=== PATIENT | male | born 1960 | race Caucasian/White ===

== ENCOUNTER → 2017-03-06 | Outpatient (CLI) | payer BC | LOC: COL.RAD 10:31 | DX: Z01.89 Encounter for other specified special examinations (principal) ==

== ENCOUNTER 2017-06-11 12:02 | Observation (INO) | payer BC ==
[~2017-06-11] VITALS: Ht 172.7 cm; Wt 68.6 kg
[2017-06-11] VITALS (10 sets, daily range): BP systolic 110–148; BP diastolic 51–77; PULSE 46–61; TEMP 97.6–98.7
[2017-06-11] MEDS ORDERED: DIFLUCAN 100MG100 MG PO (12:28)
[2017-06-11] MEDS ORDERED: ZOFRAN ODT8 MG PO (12:29)
[2017-06-11] MEDS ORDERED: NORCO 325 MG-51 TAB PO (12:30)
[2017-06-11] MEDS ORDERED: CENTRUM SILVER CHEW PO (12:31)
[2017-06-11] MEDS ORDERED: MAGIC MOUTH PO (12:32)
[2017-06-11 13:06] LABS: HEMATOCRIT 38.5 % (42.0-52.0); HEMOGLOBIN 13.1 g/dl (13.5-18.0); MEAN CELL VOLUME 86 fl (80.0-100.0); MEAN CORPUSCULAR HEMOGLOBIN 29 pg (27.0-31.0); MEAN CORPUSCULAR HGB CONC 34 g/dl (33.0-37.0); MEAN PLATELET VOLUME 9.5 fl (7.4-10.4); PLATELET COUNT 150 K/mm3 (130-400); RED BLOOD COUNT 4.49 M/mm3 (4.20-5.60); REDCELL DISTRIBUTION WIDTH-CV 13.6 % (11.5-14.5)
[2017-06-11 13:19] LABS: ALBUMIN 3.9 gm/dL (3.5-5.0); BILIRUBIN,TOTAL 0.4 mg/dL (0.0-1.0); CALCIUM 8.7 mg/dL (8.4-10.2); CREATININE, serum 0.94 mg/dL (0.66-1.25); POTASSIUM 3.9 mmol/L (3.4-5.0)
[2017-06-12] VITALS (7 sets, daily range): BP systolic 95–115; BP diastolic 52–64; PULSE 57–69; TEMP 97.5–100.1
[2017-06-12 14:33] LABS: ALBUMIN 3.2 gm/dL (3.5-5.0); BILIRUBIN,TOTAL 0.3 mg/dL (0.0-1.0); CALCIUM 8.1 mg/dL (8.4-10.2); CREATININE, serum 0.8 mg/dL (0.66-1.25); PHOSPHOROUS 2.9 mg/dL (2.5-4.5); POTASSIUM 3.9 mmol/L (3.4-5.0); TOTAL PROTEIN 6.1 gm/dL (6.4-8.2)
[2017-06-12 14:40] LABS: PRE ALBUMIN 11.9 mg/dL (17.6-36.0)
[2017-06-13 06:10] VITALS: BP 121/67; PULSE 57; TEMP 98.3
[2017-06-13 09:03] VITALS: BP 109/63; PULSE 58; TEMP 98.1
== END 2017-06-13 11:20 | disposition home or self-care (01) ==
LOC: SDCO 12:02 → SURG 14:46 → SDCO 18:00 → SURG 18:01
PROVIDERS: Surgery
DX: R13.10 Dysphagia, unspecified (principal); C09.9 Malignant neoplasm of tonsil, unspecified; Z80.9 Family history of malignant neoplasm, unspecified; Z87.891 Personal history of nicotine dependence
CPT/HCPCS: OP; A9284; J1170; J2405; J2704; J3010; J7042; J7120

== ENCOUNTER 2017-06-17 21:08 | Observation (INO) | payer BC ==
[~2017-06-17] VITALS: Ht 172.7 cm; Wt 72.2 kg
[~2017-06-17 21:08] MED LIST: CENTRUM SILVER CHEW PO; DIFLUCAN 100MG100 MG PO; MAGIC MOUTH PO; NORCO 325 MG-51 TAB PO; ZOFRAN ODT8 MG PO
[2017-06-17 21:49] LABS: BASO % 0.6 % (0.0-2.0); EOS % 0.2 % (0-4.0); GRAN # 3.9 (1.4-6.5); GRAN % 80.3 % (42.2-75.2); HEMOGLOBIN 12.1 g/dl (13.5-18.0); LYMPH # 0.3 (1.2-3.4); LYMPH % 6.5 % (20.0-51.0); MEAN CELL VOLUME 85 fl (80.0-100.0); MEAN CORPUSCULAR HEMOGLOBIN 29 pg (27.0-31.0); MEAN CORPUSCULAR HGB CONC 34 g/dl (33.0-37.0); MEAN PLATELET VOLUME 9.6 fl (7.4-10.4); MONO # 0.6 (0.1-0.6); PLATELET COUNT 148 K/mm3 (130-400); RED BLOOD COUNT 4.21 M/mm3 (4.20-5.60); REDCELL DISTRIBUTION WIDTH-CV 14.3 % (11.5-14.5)
[2017-06-17 22:01] LABS: ALBUMIN 3.6 gm/dL (3.5-5.0); BILIRUBIN,TOTAL 0.6 mg/dL (0.0-1.0); CALCIUM 8.6 mg/dL (8.4-10.2); CREATININE, serum 0.86 mg/dL (0.66-1.25); POTASSIUM 3.6 mmol/L (3.4-5.0); TOTAL PROTEIN 7.3 gm/dL (6.4-8.2)
[2017-06-17 22:05] LABS: HEMATOCRIT 35.6 % (42.0-52.0)
[2017-06-17 22:11] LABS: C-REACTIVE PROTEIN 17.4 mg/dL (0.0-0.9)
[2017-06-17 22:49] LABS: COLLECTION METHOD CLEAN CATCH
[2017-06-17 22:57] LABS: MUCOUS Present /lpf; PH 6 (5-8); SQUAMOUS EPITHELIAL 0-2 /hpf; URINE APPEARANCE Clear; URINE BACTERIA None Seen /hpf; URINE BILIRUBIN Negative (NEGATIVE); URINE BLOOD 1+ (NEGATIVE); URINE COLOR Yellow; URINE GLUCOSE Negative (NEGATIVE); URINE KETONE Negative (NEGATIVE); URINE LEUKOCYTE ESTERASE Negative (NEGATIVE); URINE NITRATE Negative (NEGATIVE); URINE PROTEIN(semi-quant) Negative (NEGATIVE); URINE UROBILINOGEN Negative (NEGATIVE)
[2017-06-18 00:41] VITALS: BP 124/64; PULSE 61; TEMP 98.1
[2017-06-18 06:12] VITALS: BP 118/65; PULSE 61; TEMP 100
[2017-06-18 09:24] VITALS: BP 119/65; PULSE 56; TEMP 97.5
[2017-06-18 14:00] VITALS: BP 122/68; PULSE 54; TEMP 98.1
== END 2017-06-18 20:00 | disposition home or self-care (01) ==
LOC: COL.ER 21:08 → SURG 23:38
PROVIDERS: Emergency Medicine
DX: R10.9 Unspecified abdominal pain (principal); E43 Unspecified severe protein-calorie malnutrition; Z93.1 Gastrostomy status; Z85.818 Personal history of malignant neoplasm of other sites of lip, oral cavity, and pharynx
CPT/HCPCS: G0378; J0696; J1170; J2405; J7030; Q9967

== ENCOUNTER 2018-03-30 04:57 | Emergency (ER) | payer BC ==
[~2018-03-30] VITALS: Ht 172.7 cm; Wt 68.2 kg
[2018-03-30 05:01] VITALS: TEMP 97.6
[2018-03-30] MEDS ORDERED: ALEVE 220MG220 MG PO (05:04)
[2018-03-30 05:38] LABS: BASO # 0.1 (0.0-0.2); BASO % 0.8 % (0.0-2.0); EOS # 0.3 (0.0-0.7); GRAN # 5.9 (1.4-6.5); GRAN % 71.5 % (42.2-75.2); HEMOGLOBIN 11.7 g/dl (13.5-18.0); LYMPH # 1.1 (1.2-3.4); LYMPH % 13.4 % (20.0-51.0); MEAN CELL VOLUME 88 fl (80.0-100.0); MEAN CORPUSCULAR HEMOGLOBIN 30 pg (27.0-31.0); MEAN CORPUSCULAR HGB CONC 34 g/dl (33.0-37.0); MEAN PLATELET VOLUME 8.5 fl (7.4-10.4); MONO # 0.8 (0.1-0.6); MONO % 10.2 % (1.7-9.3); PLATELET COUNT 322 K/mm3 (130-400); RED BLOOD COUNT 3.94 M/mm3 (4.20-5.60); REDCELL DISTRIBUTION WIDTH-CV 12.7 % (11.5-14.5)
[2018-03-30 05:39] LABS: HEMATOCRIT 34.7 % (42.0-52.0)
[2018-03-30 05:50] LABS: ALBUMIN 3.7 gm/dL (3.5-5.0); BILIRUBIN,TOTAL 0.2 mg/dL (0.0-1.0); CALCIUM 8.6 mg/dL (8.4-10.2); CREATININE, serum 0.87 mg/dL (0.66-1.25); POTASSIUM 3.9 mmol/L (3.4-5.0); TOTAL PROTEIN 6.8 gm/dL (6.4-8.2)
[2018-03-30 07:12] LABS: COLLECTION METHOD CLEAN CATCH
[2018-03-30 07:25] LABS: MUCOUS Present /lpf; PH 6 (5-8); SQUAMOUS EPITHELIAL 0-2 /hpf; URINE APPEARANCE Clear; URINE BACTERIA None Seen /hpf; URINE BILIRUBIN Negative (NEGATIVE); URINE BLOOD Negative (NEGATIVE); URINE COLOR Straw; URINE GLUCOSE Negative (NEGATIVE); URINE KETONE Negative (NEGATIVE); URINE LEUKOCYTE ESTERASE Negative (NEGATIVE); URINE NITRATE Negative (NEGATIVE); URINE PROTEIN(semi-quant) Negative (NEGATIVE); URINE RBC 0-2 /hpf; URINE UROBILINOGEN Negative (NEGATIVE)
[2018-03-30 08:31] VITALS: BP 132/85; PULSE 65
== END 2018-03-30 08:41 | disposition home or self-care (01) ==
LOC: COL.ER 04:57
PROVIDERS: Emergency Medicine
DX: K94.23 Gastrostomy malfunction (principal)
CPT/HCPCS: J1170; J7030

== ENCOUNTER → 2018-09-24 | Outpatient (CLI) | payer BC ==
[~2018-09-24] MED LIST changes: +ALEVE 220MG220 MG PO
== END ==
LOC: COL.RAD 09-19 10:30
DX: C10.9 Malignant neoplasm of oropharynx, unspecified (principal); M46.92 Unspecified inflammatory spondylopathy, cervical region; R91.8 Other nonspecific abnormal finding of lung field; L59.8 Other specified disorders of the skin and subcutaneous tissue related to radiation; Y84.2 Radiological procedure and radiotherapy as the cause of abnormal reaction of the patient, or of later complication, without mention of misadventure at the time of the procedure
CPT/HCPCS: Q9967

== ENCOUNTER 2018-10-31 20:42 | Emergency (ER) | payer BC ==
[~2018-10-31] VITALS: Ht 172.7 cm; Wt 70.5 kg
[2018-10-31 20:51] VITALS: BP 136/76; PULSE 83; TEMP 98.4
[2018-11-01] MEDS ORDERED: OMNICEF 300MG300 MG PO (00:15)
== END 2018-11-01 00:39 | disposition home or self-care (01) ==
LOC: COL.ER 20:42
DX: H66.92 Otitis media, unspecified, left ear (principal); F17.210 Nicotine dependence, cigarettes, uncomplicated; Z88.0 Allergy status to penicillin; Z85.818 Personal history of malignant neoplasm of other sites of lip, oral cavity, and pharynx

== ENCOUNTER 2018-12-19 14:42 | Emergency (ER) | payer BC ==
[~2018-12-19] VITALS: Ht 172.7 cm; Wt 68.6 kg
[~2018-12-19 14:42] MED LIST changes: +OMNICEF 300MG300 MG PO
[2018-12-19 15:30] LABS: COLLECTION METHOD CLEAN CATCH
[2018-12-19 15:36] LABS: MUCOUS Present /lpf; PH 6 (5-8); SQUAMOUS EPITHELIAL 0-2 /hpf; URINE APPEARANCE Clear; URINE BACTERIA None Seen /hpf; URINE BILIRUBIN Negative (NEGATIVE); URINE BLOOD 1+ (NEGATIVE); URINE COLOR Yellow; URINE GLUCOSE Negative (NEGATIVE); URINE KETONE Negative (NEGATIVE); URINE LEUKOCYTE ESTERASE Negative (NEGATIVE); URINE NITRATE Negative (NEGATIVE); URINE PROTEIN(semi-quant) Negative (NEGATIVE); URINE RBC 0-2 /hpf; URINE UROBILINOGEN Negative (NEGATIVE)
[2018-12-19 16:00] LABS: TRICYCLIC ANTIDEPRESS URINE NEGATIVE
[2018-12-19 16:59] LABS: BASO # 0.1 (0.0-0.2); EOS # 0.2 (0.0-0.7); EOS % 2.5 % (0-4.0); GRAN # 4.2 (1.4-6.5); GRAN % 70.9 % (42.2-75.2); HEMATOCRIT 40.9 % (42.0-52.0); HEMOGLOBIN 13.4 g/dl (13.5-18.0); LYMPH % 16.8 % (20.0-51.0); MEAN CELL VOLUME 87 fl (80.0-100.0); MEAN CORPUSCULAR HEMOGLOBIN 29 pg (27.0-31.0); MEAN CORPUSCULAR HGB CONC 33 g/dl (33.0-37.0); MEAN PLATELET VOLUME 8.8 fl (7.4-10.4); MONO # 0.5 (0.1-0.6); MONO % 8.6 % (1.7-9.3); PLATELET COUNT 334 K/mm3 (130-400); RED BLOOD COUNT 4.68 M/mm3 (4.20-5.60); REDCELL DISTRIBUTION WIDTH-CV 13.7 % (11.5-14.5)
[2018-12-19 17:10] LABS: ALANINE AMINOTRANSFERASE 7 U/L (21-72); ALBUMIN 4.2 gm/dL (3.5-5.0); ALKALINE PHOSPHATASE 79 U/L (50-136); ANION GAP 10 mmol/L (7-16); AST,SGOT 26 U/L (15-37); BILIRUBIN,TOTAL 0.4 mg/dL (0.0-1.0); BLOOD UREA NITROGEN 13 mg/dL (9-20); CALCIUM 9.4 mg/dL (8.4-10.2); CARBON DIOXIDE 26 mmol/L (22-30); CHLORIDE 105 mmol/L (98-107); CREATININE, serum 0.83 (0.66-1.25); GLUCOSE 85 mg/dL (74-106); MAGNESIUM 2.2 mg/dL (1.6-2.3); PHOSPHOROUS 2.6 mg/dL (2.5-4.5); POTASSIUM 4.1 mmol/L (3.4-5.0); SODIUM 141 mmol/L (137-145); TOTAL PROTEIN 7.5 gm/dL (6.4-8.2)
[2018-12-19 17:21] LABS: ACETAMINOPHEN < 10 ug/mL (10-30); ALCOHOL(ethanol),MEDICAL < 10 mg/dL; SALICYLATE < 1.0 mg/dL
[2018-12-19 17:52] VITALS: BP 133/82; PULSE 55; TEMP 98.6
== END 2018-12-19 17:55 | disposition home or self-care (01) ==
LOC: COL.ER 14:42
PROVIDERS: Emergency Medicine
DX: R45.851 Suicidal ideations (principal); F41.9 Anxiety disorder, unspecified; Z85.818 Personal history of malignant neoplasm of other sites of lip, oral cavity, and pharynx

== ENCOUNTER → 2019-05-05 | Outpatient (CLI) | payer BC | LOC: COL.RAD 04-30 11:30 | DX: I26.99 Other pulmonary embolism without acute cor pulmonale (principal) | CPT/HCPCS: Q9967 ==

== ENCOUNTER 2021-05-11 14:34 | Outpatient (RCR) | payer BC | END 2021-05-13 | disposition home or self-care (01) | LOC: WSOT | DX: M25.531 Pain in right wrist (principal) ==